=== PATIENT | female | born 1985 | race Caucasian/White ===

== ENCOUNTER 2016-09-18 17:20 | Emergency (ER) | payer MEDICAID, OTHER ==
[~2016-09-18] VITALS: Ht 162.6 cm; Wt 65.0 kg
[~2016-09-18 17:20] MED LIST: BEN25 PO; ELIM TOP; HC30CR25 TOP
[2016-09-18 17:28] VITALS: Ht 162.6 cm; Wt 65.0 kg
--- NOTE | 2016-09-18 18:18 | ERD ---
ER Documentation Chief Complaint Date/Time DATE: 09/18/16 TIME: 18:17 Chief Complaint rash HPI This 31-year-old female brings entire family and 2 daughters and her fo evaluation of rash, patient's 2 daughters were seen July 29 at that time only one had a scattered nonspecific rash. Patient reports that symptoms started after someone stay the night at her house. Chart review shows that patient has been seen and treated for scabies April 2016. ROS All systems reviewed and are negative except as per history of present illness. Medications Home Meds Active Scripts Diphenhydramine Hcl* (Benadryl*) 25 Mg Cap, 25 MG PO Q6, #30 CAP Prov:ANKUR,RENATA 09/18/16 Hydrocortisone* Topical (Hydrocortisone* Topical) 2.5%-28.3 Gm Cream..g., 1 APPLIC TOP BID, #1 TUB Prov:ANKUR,RENATA 09/18/16 Permethrin* (Elimite*) 5% Cr, 1 APPLIC TOP ONCE for 1 Day, TUB 1 Refill Prov:ANKUR,RENATA 09/18/16 Diphenhydramine Hcl* (Benadryl*) 25 Mg Cap, 25 MG PO Q6, #15 CAP Prov:RUMA BHAKTA MD 05/17/16 Hydrocortisone* Topical (Hydrocortisone* Topical) 2.5%-28.3 Gm Cream..g., 1 APPLIC TOP BID for 7 Days, #1 TUB Prov:RUMA BHAKTA MD 05/17/16 Permethrin* (Elimite*) 5% Cr, 1 APPLIC TOP ONCE for 1 Day, TUB Prov:RUMA BHAKTA MD 05/17/16 PMhx/Soc Hx Alcohol Use: No Hx Substance Use: No Hx Tobacco Use: No Physical Exam Vitals Vital Signs Date Time Temp Pulse Resp B/P Pulse Ox O2 Delivery O2 Flow Rate FiO2 09/18/16 17:28 98.0 78 18 132/67 99 Physical Exam Const: No acute distress Head: Atraumatic Eyes: ENT: Neck: Resp: Cardio: Abd: Skin: Scattered excoriated papules along waistband pants. Hand webbing without burrowing noted. Scattered papules on arms. Back: Ext: Neur: Awake and alert Psych: Normal Mood and Affect Procedures/MDM This 31-year-old female presents to emergency department today with her and 2 small children all complaining of same symptoms of a pruritic rash worsening over the last 10 day, symptoms are worse at night. Differential diagnosis includes but is not limited to dermatitis, atopic dermatitis, fungal infection, insect bites. Physical exam findings are more consistent with possible intensification, scabies, patient and family will be treated along with teaching as to home care. Patient prescribed permethrin topical 5% instructed to apply from the neck down to the soles of the feet, not to apply on scalp or groin area, use medication before bed, sleeping medication shower off in the morning, should remain on scan 10-12 hours. Refills provided to repeat in 7 days if symptoms continue, Benadryl liquid for itching. I feel the patient is stable for discharge and outpatient management by primary care physician. I have discussed results, examination findings, the treatment plan with the patient and family present prior to discharge. Indications for emergent reevaluation, worsening of symptoms, fever, nausea, vomiting. Side effects of medication were also discussed. All questions were answered. Patient verbalizes understanding and agrees with plan of care. Departure Diagnosis: Primary Impression: Rash and other nonspecific skin eruption Additional Impression: Scabies Additional Instructions: Thank you for for coming to [facility] for your care today. Please ask your nurse or provider if you have questions about your care today and do not leave until all your questions have been answered. Please use any medications given as directed and follow-up with your doctor (or the doctor you were referred to) in the next 2-3 days. If you do not have a primary care doctor you may follow up at the [facility] (listed below). You may also use motrin and tylenol as needed for fever and/or pain unless instructed otherwise by your provider or nurse. Indications for more urgent follow-up have been discussed, but you may return to the Emergency Department at ANY time for any worrisome or worsening symptoms. If you have abdominal pain, please know that no test or exam you received is perfect and you should follow up within 8 hours for continued pain. If you had any imaging studies today, such as an X-Ray or CT Scan, these studies will be reviewed later by a radiologist. You will be called if there are important findings that were not identified today, so make sure the contact information you provided at registration is correct. If you received any narcotic pain control medicine today, such as Vicodin, Morphine or Dilaudid, your coordination and judgment may be affected for a number of hours. Please do not drive or operate heavy machinery, and you may want someone to assist you at home. If you were given a prescription for narcotic medication, be aware that it is very addictive- use sparingly and only if necessary. RENATA PASCUAL September 18, 2016 18:18
[2016-09-18] MEDS ORDERED: ELIM TOP (18:20)
[2016-09-18] MEDS ORDERED: HC30CR25 TOP (18:20)
[2016-09-18] MEDS ORDERED: BEN25 PO (18:21)
== END 2016-09-18 18:18 | disposition home or self-care (01) ==
LOC: FTE 17:20 → E/R 18:18
DX: R21 Rash and other nonspecific skin eruption (principal); B86 Scabies
CPT/HCPCS: 99283

== ENCOUNTER 2016-12-19 09:00 | Emergency (ER) | END 2016-12-19 10:28 | disposition home or self-care (01) | DX: M25.561 Pain in right knee (principal) | CPT/HCPCS: 29505; 73562; Z7502; Z7610 ==

== ENCOUNTER 2017-11-18 23:58 | Emergency (ER) | END 2017-11-19 03:55 | disposition home or self-care (01) ==